=== PATIENT | female | born 1990 | race Caucasian/White ===

== ENCOUNTER 2017-02-05 20:13 | Emergency (ER) | payer MEDICARE, MEDICAID ==
[2017-02-05 20:28] VITALS: TEMP 98.6
[2017-02-05 21:07] LABS: APPEARANCE,URINE Clear; BILIRUBIN,URINE NEGATIVE (NEGATIVE); COLOR,URINE Yellow; GLUCOSE, URINE (UA) NEGATIVE (NEGATIVE); KETONES,URINE NEGATIVE (NEGATIVE); LEUKOCYTE ESTERASE ,URINE NEGATIVE (NEGATIVE); NITRATE,URINE NEGATIVE (NEGATIVE); OCCULT BLOOD,URINE NEGATIVE (NEG-TRACE); PH,URINE 5.5; UROBILINOGEN,URINE 0.2 (0.2-1.0 EU)
[2017-02-05 21:15] LABS: HEMATOCRIT 33 % (35-47); MEAN CORPUSCULAR HGB CONC 35.3 gm/dl (32.0-36.0); MEAN CORPUSCULAR VOLUME 90 fL (81-99)
[2017-02-05 21:22] LABS: CALCIUM 8.7 mg/dl (8.5-10.1); POTASSIUM 3.2 mMol/L (3.5-5.1)
[2017-02-05 21:24] LABS: AMPHETAMINES NEGATIVE (NEGATIVE); METHADONE NEGATIVE (NEGATIVE); OPIATES(OP13) NEGATIVE (NEGATIVE); OXYCODONE(OXY) NEGATIVE (NEGATIVE); PROPOXYPHENE(PPX) NEGATIVE (NEGATIVE); RBC,URINE 0-2 (0-3AV/HPF); TRICYCLIC ANTIDEPRESSANTS NEGATIVE (NEGATIVE)
[2017-02-05] MEDS ORDERED: KETOROLAC TROMETHAMINE 30 MG/ML SOL IV ONE (21:29)
[2017-02-05] MEDS ORDERED: KETOROLAC TROMETHAMINE 30 MG/ML SOL ONE (21:31)
[2017-02-05 21:34] LABS: BASOPHILS % (MANUAL) 1 % (0-3); EOSINOPHILS % (MANUAL) 2 % (0-9); LYMPHOCYTES % (MANUAL) 42 % (10-50); NORMAL RBCS PRESENT
[2017-02-05] MEDS ORDERED: SODIUM CHLORIDE 0.9% FLUSH 10 ML SOL IV PRN (21:38)
[2017-02-05] MEDS ORDERED: POTASSIUM CHLORIDE 10 MEQ TER PO ONE (21:38)
[2017-02-05] MEDS ORDERED: POTASSIUM CHLORIDE 10 MEQ TER ONE (21:39)
[2017-02-05 21:57] VITALS: BP 120/71; PULSE 86; RESP 16; O2SAT 100
== END 2017-02-05 21:50 | disposition home or self-care (01) | DRG 552 ==
LOC: ED 20:13
DX: M54.5 Low back pain (principal); E87.6 Hypokalemia; R10.9 Unspecified abdominal pain; Z87.440 Personal history of urinary (tract) infections
CPT/HCPCS: 36415; 80048; 80305; 81001; 85007; 85027; 99283; J1885